=== PATIENT | female | born 1995 | race Two or more races ===

== ENCOUNTER 2017-09-02 03:14 | Emergency (ER) | payer SELFPAY ==
[2017-09-02 03:15] VITALS: BP 109/67; PULSE 106; RESP 16; TEMP 36.9; O2SAT 100; BMI 19.9
--- NOTE | 2017-09-02 03:26 | ED.VISSUMM ---
- ER Visit Summary Date of Service: 09/02/17 Chief Complaint: Cutting History of Present Illness: The patient is a 22 F presenting with suicidal ideation. Patient states she was in an argument with her significant other. She was outside crying and an officer from her school stopped her. She had cut both her upper extremities with keys. She states she was not trying to kill herself. Her last tetanus was a year ago. She admits to some alcohol use tonight. Denies drug use. Denies other complaints. Physical Examination: Vitals are stable. Patient is afebrile. Alert no acute distress. HEENT exam is unremarkable. Neck is supple. Lungs are clear and equal bilaterally. Heart is regular rate and rhythm. Abdomen is soft nontender nondistended. Extremities multiple superficial abrasions bilateral upper extremities Skin is warm and dry. No focal neurologic deficit. Depressed affect Remainder of exam is unremarkable. Emergency Department Course and Treatment: CBC, chemistries unremarkable. Alcohol 167. HCG negative. Patient was evaluated by the counseling center. They feel she is safe for discharge. She continues to deny suicidal ideation. She will be discharged with a sober ride. She is advised to follow-up with the counseling center. Advised return ED if worsening complaints. Disposition: Per counseling center Impression: Cutting behavior, bilateral upper extremity abrasions This note was generated with [employer] dictation software. It may contain incorrect words, spelling, and punctuation that were not noted in review of the chart prior to signing ED Disposition - Plan for ED Patient: Disposition: Home or Assisted Living Chief Complaint: Suicidal Instructions: ED Depression Referrals: Counseling,Center [GROUP OF PHYSICIANS] - Care Physician,No Primary [Primary Care Provider] -
[2017-09-02 03:33] LABS: Absolute Lymphocyte Count 2.14 X10^3/ul (0.83-4.51); Absolute Neutrophil Count 4.1 X10^3/uL (2.0-7.7); Basophil# 0.02 X10^3/uL; Basophil% 0.3 % (0-1); Eosinophil# 0.07 X10^3/uL; Hematocrit 38.6 % (37-47); Hemoglobin 12.9 g/dl (12.0-15.0); Lymphocyte # 2.14 X10^3/ul (4.0); Lymphocyte % 31.6 % (19-41); Mean Corp Hgb Conc 33.4 g/gl (32-36); Mean Corpuscular Hgb 31.8 pg (27.0-32.0); Mean Corpuscular Volume 95.1 fL (81-99); Mean Platelet Vol. 9.7 fl (6.2-12.0); Monocyte% 5.9 % (0-10); Neutrophil # 4.14 X10^3/uL (2.7-7.7); Neutrophil % 61.2 % (47-70); Platelet Count 261 K/mm3 (150-450); RBC Distribution Width CV 12.7 % (11.6-14.6); RBC Distribution Width SD 43.5 fl (35.1-43.9); Red Blood Count 4.06 M/mm3 (4.2-5.4); White Blood Count 6.8 K/mm3 (4.4-11.0)
[2017-09-02 03:42] LABS: POSITIVE COUNT NO; POSITIVE DIFFERENTIAL NO; POSITIVE MORPHOLOGY NO
[2017-09-02 03:53] LABS: Anion Gap 10 (5-15); BUN 9 mg/dL (7-18); BUN/Creat Ratio 22.2 RATIO (10-20); Calcium,Total 8.1 mg/dL (8.5-10.1); Chloride 114 mmol/L (98-107); EST Glomerular Filtration Rate 207 mL/min (>60); Est Glom Filt Rate - Afr Amer 251 mL/min (>60); Estimated Creatinine Clearance 170.93 ml/min; Glucose 98 mg/dL (74-106); Potassium 3.6 mmol/L (3.5-5.1); Sodium Level 146 mmol/L (136-145)
--- NOTE | 2017-09-02 03:58 | NURSING ---
wounds cleaned with normal saline, bacitracin applied, and dressings put on.
[2017-09-02 04:21] LABS: Amphetamine Urine VISTA NEGATIVE (<1000 ng/mL); Barbiturate Urine VISTA NEGATIVE (< 200 ng/mL); Benzodiazepine Urine VISTA NEGATIVE (< 200 ng/mL); Cocaine Urine VISTA NEGATIVE (< 300 ng/mL); Ecstacy Urine VISTA NEGATIVE (< 500 ng/mL); Methadone Urine VISTA NEGATIVE (< 300 ng/mL); PCP Urine VISTA NEGATIVE (< 25 ng/mL); THC Urine VISTA NEGATIVE (< 50 ng/mL); Vista UDS pH Range 6
[2017-09-02 04:32] LABS: Pregnancy, Serum, hCG Quali. NEGATIVE Negative (0-9 Nonpreg)
--- NOTE | 2017-09-02 04:40 | ED.DEP ---
ED Disposition - Plan for ED Patient: Chief Complaint: Suicidal Instructions: ED Depression Referrals: Care Physician,No Primary [Primary Care Provider] - Counseling,Center [GROUP OF PHYSICIANS] -
[2017-09-02 05:18] VITALS: BP 112/67; PULSE 71; RESP 16; O2SAT 99
--- NOTE | 2017-09-02 05:19 | NURSING ---
will follow up with the counseling center and keep wounds clean and dry.
== END 2017-09-02 05:56 | disposition home or self-care (01) ==
LOC: ED 03:37
PROVIDERS: Emergency Provider Emergency Medicine
DX: S40.812A Abrasion of left upper arm, initial encounter (principal); S40.811A Abrasion of right upper arm, initial encounter; X78.8XXA Intentional self-harm by other sharp object, initial encounter; Y93.9 Activity, unspecified; Y92.89 Other specified places as the place of occurrence of the external cause; Y99.9 Unspecified external cause status
CPT/HCPCS: 80048; 80307; 80320; 84703; 85025; 99284; G0480